=== PATIENT | female | born 1935 | race Caucasian/White ===

== ENCOUNTER 2023-04-29 13:30 | Outpatient (AMB) | payer OTHER, SELFPAY ==
--- NOTE | 2023-04-29 13:33 | A.OFFPC_ITS ---
Vital Signs 04/29/23 13:38 04/29/23 14:02 Height 5 ft 2 in BMI Reason not done Patient refused/unable BP 162/82 H 126/80 Blood Pressure Location Lt brachial Rt brachial Position Sitting Sitting Pulse 77 Pulse Source Pulse Oximeter Pulse Oximetry (%) 99 Intake Visit Reasons: 1 mos HTN Intake Note: pt is here for f/u HTN Envelope Cutter Required: No Allergies No Known Allergies Allergy (Verified 04/29/23 13:43) Medication List - Last Reconciled 04/29/23 by Sherice Garcia CNP acetaminophen ER 650 mg PO Q12H PRN 30 days cholecalciferol (vitamin D3) 25 mcg PO DAILY 30 days fosinopril 40 mg PO DAILY 30 days levothyroxine 75 mcg PO DAILY 30 days mirtazapine 7.5 mg (1/2 x 15 mg) PO DAILY 30 days mvoigpya-mig-rdsa-FA-vit K-lut 8 mg iron-400 mcg-50 mcg (Centrum Silver Women) 1 tab PO DAILY 30 days polyethylene glycol prn fxipqya-qgrddkstm-ipcaiwix(PF) 0.5-0.15-2 % drps ophthalmic (eye) Tobacco use date assessed: 04/01/23 Fall risk assessment: 2 + Falls in past year Last assessed Fall Risk: 04/29/23 Dental Screening Dental Screen Date: 04/29/23 Did you have a dental visit in the last 12 months?: No Did you have a dental problem in the last 6 months where you did not have access to dental care?: No Was dental information given to patient?: Yes HPI HPI Comments History of Present Illness Details 87-year-old female, accompanied by her niece and nephew, presents for hypertension follow-up. She was escorted in a wheelchair and out of the office. Her blood pressure was 160/86 on her last visit. Fosinopril was increased to 40 mg daily.? She resides at [facility]. Her nephew states she has been taking her medications as prescribed. No acute symptoms today. Fasting blood work is still outstanding. Her nephew states she had blood work done at [facility] laboratory few months ago. At the last visit, she was referred to [facility] care for palliative care and [facility] for unsteady gait and fall risks. [facility] Medical History Alzheimer's dementia Arthritis Cervical spine fracture Essential hypertension Head trauma Hyperlipidemia Hypothyroidism Imbalance Incontinence Kyphosis Memory loss Murmur Nail dystrophy Primary osteoarthritis, right shoulder Right rotator cuff tear Sensorineural hearing loss Trigger finger Surgical History H/O adenoidectomy H/O gynecological procedure H/O knee surgery History of partial knee replacement Hx of cataract surgery S/P tonsillectomy Social History Household Members Other:: living care facility Housing: Assisted Living Facility Alcohol intake: never Patient Tobacco Use Status: Never used Tobacco e-Cigarette/Vaping Use: Never Used service: No Current occupational status: retired Cognitive needs: Yes Hearing needs: Yes Vision needs: Yes Review of Systems Const Details: Const Details: Const Denies chills, Denies fatigue, Denies fever(s), Denies headache(s) and Denies weakness ENT Denies dizziness and Denies headache(s) Card Denies chest pain, Denies lightheadedness, Denies dyspnea and Denies other (Palpitations) Resp Denies cough, Denies dyspnea, Denies wheezing and Denies other ( shortness of breath) GI Denies abdominal pain, Denies melena, Denies hematochezia, Denies change in bowel habits, Denies dyspepsia and Denies nausea Denies hematuria and Denies dysuria Musc Reports abnormal gait, Denies myalgias, Denies arthralgias, Denies numbness and Denies tingling Skin/Breast Denies rash, Denies unusual bruising and Denies wounds Neuro Denies abnormal gait, Denies dizziness, Denies headache(s), Denies memory loss, Denies numbness, Denies Sensory deficit (Neuro), Denies tingling and Denies weakness Psych Denies anxiety and Denies depression Endo Denies cold intolerance, Denies fatigue, Denies heat intolerance, Denies polydipsia and Denies polyuria Aller/Immun Denies wheezing Physical exam (Primary Care) Vital Signs: Last Vital Signs Pulse 77 04/29/23 13:38 BP 126/80 04/29/23 14:02 Pulse Ox 99 04/29/23 13:38 Tobacco/Smoking Status: Tobacco use Status Tobacco use date assessed 04/01/23 04/29/23 13:34 Patient Tobacco Use Status Never used Tobacco 04/29/23 13:34 e-Cigarette/Vaping Use Never Used 04/29/23 13:34 Const Other: Const Other: General: no acute distress and well developed Nutritional Appearance: well nourished Orientation/consciousness: alert, oriented to person and time [facility] Head: Yes normocephalic and Yes atraumatic Eyes General: appearance normal, both eyes and all related structures Pupils: Equal, round and reactive pupils present EOM: EOMs intact bilaterally Resp Effort & Inspection: normal respiratory effort Auscultation: clear to auscultation bilaterally Cardio Rate: regular rate Rhythm: regular rhythm Heart sounds: S1 normal heart sound present, S2 normal heart sound present, no gallops, no murmurs and no rubs GI Palpation (GI): No Abdominal aortic bruit present, Soft to palpation, nontender, No hepatosplenomegaly present and No Rebound tenderness present Auscultation: normal bowel sounds General: Yes no CVA tenderness Back/Spine/Pelvis Back: no CVA tenderness Cervical Spine: cervical ROM normal and No Cervical spine tenderness Thoracic/Lumbar Spine: thoraco-lumbar ROM normal, No pain with thoraco-lumbar ROM, No thoracic spinal tenderness and No lumbar spinal tenderness Extrem General: Yes normal to inspection, No edema and No calf tenderness Skin General: warm and dry. Normal skin color. Normal skin turgor Lesions: no lesions Rashes: no rashes Trauma: no lacerations or abrasions Wounds: no wounds Nails: normal Neuro General: patient oriented x2 (person and place) and no focal neuro deficits Cranial nerves: Yes Equal, round and reactive pupils present Cognition (Neuro): normal cognition Gait exam (Neuro):? Sitting in a wheelchair Motor exam (neuro): 5/5 motor strength present throughout Sensory Exam: No Sensory deficit (Neuro) Psych Appearance: grossly normal Affect: normal affect Attitude: cooperative Thought process: Normal thought process present Assessment and Plan Assessment & Plan (1) Essential hypertension: Code(s): I10 - Essential (primary) hypertension Plan: Initial blood pressure was 162/82 Resting blood pressure is 126/80, within goal of less than 140/90 Continue to take fosinopril as prescribed Low-sodium diet encouraged Referred to [facility] for 2-3 x/wk blood pressure checks Will request recent blood work from [facility] lab Follow-up in 1 month for complete physical exam Return sooner with symptoms or concerns Verbalized understanding and agreed with treatment plan. Orders: Referrals [facility] Referral I10 - Essential (primary) hypertension Coding Level of Care Code Est Pt Level 3 (41613) Diagnoses Essential hypertension I10 Time Spent (min) 25
[2023-04-29 13:38] VITALS: BP 162/82; PULSE 77; O2SAT 99
[2023-04-29 14:02] VITALS: BP 126/80
== END 2023-04-29 14:15 | disposition home or self-care (01) ==
PROVIDERS: PCP Nurse Practitioner Family; Visit Provider Nurse Practitioner Family
DX: I10 Essential (primary) hypertension (principal)
CPT/HCPCS: 99213